=== PATIENT | female | born 1995 | race Caucasian/White ===

== ENCOUNTER 2022-05-09 03:52 | Day surgery (SDC) | payer BC, SELFPAY ==
[2022-05-09] VITALS (11 sets, daily range): BP systolic 104–139; BP diastolic 54–93; PULSE 58–105; RESP 12–18; TEMP 36.3–36.4; O2SAT 99–100
--- NOTE | ~2022-05-09 | CT_ITS ---
EXAMINATION: CT abdomen pelvis w con DATE: 05/09/2022 05:46 INDICATION: Mid and low abdominal pain. Nausea, vomiting, and diarrhea. TECHNIQUE: Computed tomography (CT) of the abdomen and pelvis was performed with 100 mL Omnipaque 350 intravenous contrast. Automated exposure control and iterative reconstruction technique were employe d. The dose-length product was 194.22 mGy-cm. COMPARISON: None. FINDINGS: The visualized portions of the lung bases are clear without pneumonia or pleural effusion. The heart size is normal. No pericardial effusion. The liver, gallbladder, spleen, pancreas, adrenal glands, and kidneys are normal. There are appendicoliths in the appendix, which is dilated to 11 mm a nd contains fluid and gas. There are no pathologically enlarged lymph nodes. There is physiologic flu id in the pelvis. There is thoracolumbar levocurvature. There is mild chronic wedging of T11 and T12 vertebral bodies, likely physiologic. IMPRESSION: 1. Acute appendicitis. Reviewed, dictated and finalized at location A. IMPRESSION: 1. Acute appendicitis.
--- NOTE | 2022-05-09 04:09 | ED.ABDPAIN ---
HPI - Abdominal Pain General Chief Complaint: Abdominal Pain Stated Complaint: abd pain/n/v Time Seen by Provider: 05/09/22 03:58 Source: patient Mode of arrival: ambulatory Limitations: no limitations History of Present Illness HPI narrative: This is a 26 year old female who presents for evaluation nausea, vomiting and diarrhea. Patient developed diffuse abdominal pain with nausea, vomiting and diarrhea at midnight. Her pain has been constant. Her mother and father are at bedside and they report patient has sensitive stomach. Patient had BBQ chicken pizza with beer cider. Patient denies any sick contacts or anyone with similar symptoms. Related Data Allergies Allergy/AdvReac Type Severity Reaction Status Date / Time No Known Allergies Allergy Verified 05/09/22 04:30 Review of Systems Review of Systems: All systems reviewed & are unremarkable except as noted in HPI and below Constitutional: Constitutional: Reports chills and Reports fatigue Cardiovascular: Cardiovascular: Denies chest pain Respiratory: Respiratory: Denies chest congestion Gastrointestinal: Gastrointestinal: Reports abdominal pain, Reports diarrhea, Reports nausea and Reports vomiting PMFSH Past Medical History Medical History (Updated 05/09/22 @ 07:13 by Lucinda Bajwa MD) Patient denies medical problems Surgical History Surgical History (Updated 05/09/22 @ 04:12 by Lucinda Bajwa MD) No pertinent past surgical history Social History Social History (Updated 05/09/22 @ 04:12 by Lucinda Bajwa MD) Alcohol intake: current Exam Const: General: no acute distress and alert Orientation/consciousness: patient oriented x3 Eyes: EOM: EOMs intact bilaterally Resp: Effort & Inspection: normal respiratory effort Auscultation: clear to auscultation bilaterally Cardio: Rate: regular rate Rhythm: regular rhythm Heart sounds: no murmurs GI: GI Palp: Yes Soft to palpation, Yes Tenderness to palpation present (GI) (LLQ, RLQ, suprapubic), No Guarding due to palpation present (GI) and No Rigid due to palpation Auscultation: normal bowel sounds Back/Spine/Pelvis: Back: no CVA tenderness Skin: General skin exam: normal color Rashes: no rashes Wounds: no wounds Neuro: General: patient oriented x3, moves all extremities and CN's II-XI intact bilaterally Extrem: General: normal to inspection Psych: Mental Status: mental status grossly normal Affect: normal affect Attitude: cooperative Course Reevaluation(s) Reevaluation #1: Patient is awaiting CT abdomen/pelvis. Care turned over to Dr. Zheng Date: 05/09/22 Time: 07:12 Vital Signs Vital signs: Vital Signs Temperature 97.3 F L 05/09/22 03:57 Pulse Rate 105 H 05/09/22 03:57 Respiratory Rate 18 05/09/22 03:57 Blood Pressure 139/85 05/09/22 03:57 Pulse Oximetry 100 05/09/22 03:57 Oxygen Delivery Room Air 05/09/22 03:57 Temperature 97.3 F L 05/09/22 03:57 Pulse Rate 105 H 05/09/22 04:35 Respiratory Rate 18 05/09/22 03:57 Blood Pressure 134/93 H 05/09/22 04:35 Pulse Oximetry 100 05/09/22 03:57 Oxygen Delivery Room Air 05/09/22 03:57 MDM - Abdominal Pain Lab Data Result diagrams: 05/09/22 04:29 05/09/22 04:29 Labs: Lab Results 05/09/22 05/09/22 05/09/22 Range/Units 04:29 04:29 04:29 WBC 20.8 H (4.5-10.0) K/mm3 RBC 4.14 L (4.2-5.4) M/mm3 Hgb 13.4 (12.0-15.0) g/dL Hct 40.0 (37.0-47.0) % MCV 96.6 (80-100) fl MCH 32.4 (26-34) pg MCHC 33.5 (32-36) g/dl RDW 13.8 (11.5-14.5) % Plt Count 296 (150-375) k/mm3 MPV 10.0 (7.4-10.4) fl Immature Gran % (Auto) 0.4 (0-0.5) % Neut % (Auto) 87.5 H (45.5-73.1) % Lymph % (Auto) 5.2 L (18.3-44.2) % [place] % (Auto) 6.2 (2.6-8.5) % Eos % (Auto) 0.1 (0-4.4) % Baso % (Auto) 0.6 (0.2-1.2) % Lymph # (Auto) 1.08 (0.9-3.2) K/mm3 [place] # (Auto) 1.3 H (0.1-0.6) K/mm3 E
[2022-05-09] MEDS: LACTATED RINGERS 1,000 ML 999 ML IV CONT ×2 (04:30→05:30)
[2022-05-09] MEDS: ONDANSETRON INJ 4 MG/2 ML VIAL IV PUSH ×2 (04:31→06:13)
[2022-05-09 04:48] LABS: Basophils Absolute Auto 0.1 K/mm3 (0.0-0.1); Basophils Percent Auto 0.6 % (0.2-1.2); Eosinophils Percent Auto 0.1 % (0-4.4); Hemoglobin 13.4 g/dL (12.0-15.0); Immature Granulocyte Absolute 0.08 K/mm3 (0.00-0.031); Immature Granulocyte Percent A 0.4 % (0-0.5); Lymphocytes Absolute Auto 1.08 K/mm3 (0.9-3.2); Lymphocytes Percent Auto 5.2 % (18.3-44.2); Mean Corpuscular HGB Conc 33.5 g/dl (32-36); Mean Corpuscular Hemoglobin 32.4 pg (26-34); Mean Corpuscular Volume 96.6 fl (80-100); Monocytes Absolute Auto 1.3 K/mm3 (0.1-0.6); Monocytes Percent Auto 6.2 % (2.6-8.5); Neutrophils Absolute Auto 18.2 K/mm3 (1.3-6.7); Neutrophils Percent Auto 87.5 % (45.5-73.1); Platelet Count Result 296 k/mm3 (150-375); Red Blood Count 4.14 M/mm3 (4.2-5.4); Red Cell Distribution Width 13.8 % (11.5-14.5); White Blood Count 20.8 K/mm3 (4.5-10.0)
[2022-05-09 04:50] LABS: Appearance Urine Clear (Clear); Bilirubin Urine Negative (Negative); Blood Urine 1+ (Negative); Color Urine Yellow (Yellow); Glucose Urine UA Negative (Negative); Ketones Urine Negative (Negative); Leukocyte Esterase Ur Negative LEU/UL (Negative); Nitrate Urine Negative (Negative); Protein Urine Negative (Negative); Urobilinogen Urine 0.2 mg/dL (<2.0); pH Urine 8.5 (5.0-9.0)
[2022-05-09 04:57] LABS: Add Urine Microscopic? YES; Bacteria Urine Trace /hpf; Mucus Urine Rare /lpf; Squamous Epithelial Cell Urine Rare /hpf (Few); WBC Urine 0-3 /hpf
[2022-05-09 05:00] LABS: Alanine Aminotransferase 27 U/L (6-35); Albumin Level 4.5 g/dL (3.5-5.1); Alkaline Phosphatase 66 U/L (38-126); Anion Gap 11 mmol/L (8-16); Aspartate Amino Transferase 42 U/L (14-36); Bilirubin,Total 0.6 mg/dL (0.2-1.3); Blood Urea Nitrogen 14 mg/dL (7-17); Calcium 9.2 mg/dL (8.4-10.2); Carbon Dioxide 25 mmol/L (22-30); Chloride 101 mmol/L (98-107); Estimated CRCL calculation 88 ml/min; Estimated Glomerular Filt Rate > 60; Glucose 120 mg/dL (65-110); Lipase 82 U/L (23-300); Sodium 137 mmol/L (137-145)
[2022-05-09 05:21] LABS: SARS-CoV-2 RNA PCR Negative
--- NOTE | 2022-05-09 05:32 | PC.NURSE ---
Patient taken to CT via stretcher.
[2022-05-09] MEDS: KETOROLAC 15 MG/ML VIAL (*BKC) IV PUSH (06:13)
--- NOTE | 2022-05-09 08:56 | WPDHPUPDATE1 ---
History and Physical Update Update Date/Time: 05/09/22 08:56 History and Physical has been reviewed, including an updated exam of the patient. There are NO changes in the patient's condition. Risks, benefits, and alternatives have been discussed and questions answered. Patient agrees to proceed with procedure.
--- NOTE | 2022-05-09 08:58 | PM.SD2 ---
Same Day Admit/Disch: [facility] History of Present Illness Chief complaint: Appendicitis Narrative: Marly Pinedo is a 26 year old female developed diffuse abdominal pain with nausea and some loose stools about midnight last night. Her pain was persistent and she came to the emergency room early this morning. Exam there showed her to be very tender throughout the lower abdomen. Her white blood cell count was elevated to 20,800. She had some tachycardia but no fever. CT scan of the abdomen pelvis shows acute appendicitis with the appendix being 11 mm in diameter and appendicoliths present. She is seen now and plans are to proceed with laparoscopic appendectomy this morning on an urgent basis. She is otherwise healthy. [facility] [place] Past Medical History Medical History (Updated 05/09/22 @ 09:24 by Sajan Castañeda MD) Appendicitis Patient denies medical problems Surgical History Surgical History (Updated 05/09/22 @ 09:24 by Sajan Castañeda MD) History of ear surgery S/P ACL repair Social History Social History Alcohol intake: current Same Day Admit/Disch: Med Pre-admit Medications Home Medications Medication Instructions Recorded Confirmed Type ketorolac 10 mg tablet 10 mg PO Q6H 4 days #16 tabs 05/09/22 Rx oxycodone-acetaminophen 5 mg-325 0.5 - 1 tablet PO Q6H PRN pain #10 05/09/22 Rx mg tablet tabs Exam Const: General: no acute distress, alert, awake and uncomfortable HENMT: Head: normocephalic and atraumatic Mouth: Yes Normal oral and palatal mucosa present Eyes: Conjunctivae: conjunctivae normal Pupils: Equal, round and reactive pupils present EOM: EOMs intact bilaterally Neck: Neck: normal visual inspection, no lymphadenopathy and nontender Resp: Effort & Inspection: normal respiratory effort Auscultation: clear to auscultation bilaterally Cardio: Rate: regular rate Rhythm: regular rhythm Heart sounds: no gallops, no murmurs and no rubs GI: Inspection: non-distended GI Palp: Yes Soft to palpation, Yes Tenderness to palpation present (GI) (Both lower quadrants, more on the right), Yes Guarding due to palpation present (GI) (Right lower quadrant), No Hepatomegaly present, No Splenomegaly present and Yes Palpable mass present (Fullness right lower quadrant) Skin: Lesions: no lesions Rashes: no rashes Neuro: General: no focal motor deficits and CN's II-XI intact bilaterally Cranial nerves: Yes Equal, round and reactive pupils present, Yes Bilaterally intact EOM present, Yes facial symmetry and Yes Midline tongue present Speech: normal speech Motor exam (neuro): 5/5 motor strength present throughout and Motor abnormalities not present Extrem: General: no clubbing, cyanosis or edema and edema Psych: Affect: normal affect Thought process: Normal thought process present Insight: Good insight present (Psych) DS: Data Data Completed and Pending Labs on day of discharge: Labs from last 24 hours 05/09/22 05/09/22 05/09/22 04:32 04:29 04:29 WBC 20.8 H RBC 4.14 L Hgb 13.4 Hct 40.0 MCV 96.6 MCH 32.4 MCHC 33.5 RDW 13.8 Plt Count 296 MPV 10.0 Immature Gran % (Auto) 0.4 Neut % (Auto) 87.5 H Lymph % (Auto) 5.2 L [place] % (Auto) 6.2 Eos % (Auto) 0.1 Baso % (Auto) 0.6 Lymph # (Auto) 1.08 [place] # (Auto) 1.3 H Eos # (Auto) 0.0 Baso # (Auto) 0.1 Abs Immat Gran (auto) 0.08 H Absolute Neuts (auto) 18.2 H Absolute Nucleated RBC 0.0 Nucleated RBC % 0.0 Sodium 137 Potassium 4.0 Chloride 101 Carbon Dioxide 25 Anion Gap 11 BUN 14 Creatinine 0.70 Estim Creat Clear Calc 88 Estimated GFR > 60 Glucose 120 H Calcium 9.2 Total Bilirubin 0.6 AST 42 H ALT 27 Alkaline Phosphatase 66 Total Protein 8.0 Albumin 4.5 Lipase 82 Urine Color Urine Appearance Urine pH Ur Specific [place] Urine Protein Urine Gluc
--- NOTE | 2022-05-09 09:24 | WPDANESEPPF ---
Anes - Initial Pre Proc Eval Procedure: Operation Date: 05/09/22 10:00 Proposed Procedures p Laparoscopic Appendectomy - Filipe Granados MD Date/Time: 05/09/22 09:24 Surgeon: Filipe Granados MD Pre Op Diagnosis: Appendicitis Patient Data Age: 26 Gender: F Height: 1.6 m Weight: 53.6 kg Last Vital Signs Temp 36.3 C L 05/09/22 03:57 Pulse 105 H 05/09/22 04:35 Resp 18 05/09/22 03:57 BP 134/93 H 05/09/22 04:35 Pulse Ox 100 05/09/22 03:57 O2 Del Method Room Air 05/09/22 03:57 Allergies Allergy/AdvReac Type Severity Reaction Status Date / Time No Known Allergies Allergy Verified 05/09/22 04:30 Laboratory Tests 05/09/22 05/09/22 05/09/22 04:29 04:29 04:29 WBC 20.8 K/mm3 H K/mm3 (4.5-10.0) RBC 4.14 M/mm3 L M/mm3 (4.2-5.4) Hgb 13.4 g/dL g/dL (12.0-15.0) Hct 40.0 % % (37.0-47.0) MCV 96.6 fl fl (80-100) MCH 32.4 pg pg (26-34) MCHC 33.5 g/dl g/dl (32-36) RDW 13.8 % % (11.5-14.5) Plt Count 296 k/mm3 k/mm3 (150-375) MPV 10.0 fl fl (7.4-10.4) Immature Gran % (Auto) 0.4 % % (0-0.5) Neut % (Auto) 87.5 % H % (45.5-73.1) Lymph % (Auto) 5.2 % L % (18.3-44.2) [place] % (Auto) 6.2 % % (2.6-8.5) Eos % (Auto) 0.1 % % (0-4.4) Baso % (Auto) 0.6 % % (0.2-1.2) Lymph # (Auto) 1.08 K/mm3 K/mm3 (0.9-3.2) [place] # (Auto) 1.3 K/mm3 H K/mm3 (0.1-0.6) Eos # (Auto) 0.0 K/mm3 K/mm3 (0-0.3) Baso # (Auto) 0.1 K/mm3 K/mm3 (0.0-0.1) Abs Immat Gran (auto) 0.08 K/mm3 H K/mm3 (0.00-0.031) Absolute Neuts (auto) 18.2 K/mm3 H K/mm3 (1.3-6.7) Absolute Nucleated RBC 0.0 K/mm3 K/mm3 (0.0-0.012) Nucleated RBC % 0.0 % % (0.0-0.2) Sodium 137 mmol/L mmol/L (137-145) Potassium 4.0 mmol/L mmol/L (3.4-5.0) Chloride 101 mmol/L mmol/L (98-107) Carbon Dioxide 25 mmol/L mmol/L (22-30) Anion Gap 11 mmol/L mmol/L (8-16) BUN 14 mg/dL mg/dL (7-17) Creatinine 0.70 mg/dL mg/dL (0.7-1.0) Estim Creat Clear Calc 88 ml/min ml/min Estimated GFR > 60 (59 - ) Glucose 120 mg/dL H mg/dL (65-110) Calcium 9.2 mg/dL mg/dL (8.4-10.2) Total Bilirubin 0.6 mg/dL mg/dL (0.2-1.3) AST 42 U/L H U/L (14-36) ALT 27 U/L U/L (6-35) Alkaline Phosphatase 66 U/L U/L (38-126) Total Protein 8.0 g/dL g/dL (6.3-8.2) Albumin 4.5 g/dL g/dL (3.5-5.1) Lipase 82 U/L U/L (23-300) Urine Color Yellow (Yellow) Urine Appearance Clear (Clear) Urine pH 8.5 (5.0-9.0) Ur Specific [place] 1.020 (1.001-1.035) Urine Protein Negative mg/dL mg/dL (Negative) Urine Glucose (UA) Negative mg/dL mg/dL (Negative) Urine Ketones Negative mg/dL mg/dL (Negative) Ur Blood (Man) 1+ H (Negative) Urine Nitrate Negative (Negative) Urine Bilirubin Negative (Negative) Urine Urobilinogen 0.2 mg/dL mg/dL (<2.0) Leukocyte Esterase Rfl Negative DIMITRIS/UL DIMITRIS/UL (Negative) Urine RBC 11-20 /hpf H /hpf (0-2) Urine WBC 0-3 /hpf /hpf Ur Squamous Epith Cells Rare /hpf /hpf (Few) Urine Bacteria Trace /hpf /hpf Urine Mucus Rare /lpf /lpf SARS-CoV-2 RNA (RT-PCR) 05/09/22 04:32 WBC RBC Hgb Hct MCV MCH MCHC RDW Plt Count MPV Immature Gran % (Auto) Neut % (Auto) Lymph % (Auto) [place] % (Auto) Eos % (Auto) Baso % (Auto) Lymph # (Auto) [place] # (Auto) Eos # (Auto) Baso # (Auto) Abs Immat Gran
[2022-05-09] MEDS: LACTATED RINGERS 1,000 ML 30 ML IV CONT ×2 (10:00→10:24)
--- NOTE | 2022-05-09 10:17 | P.OP_ITS ---
Procedure Note - Detailed Date of Procedure 05/09/22 Pre-op Diagnosis Appendicitis Post-op Diagnosis Same Procedure Performed Laparoscopic appendectomy Surgeon Filipe Granados MD Aerophysics Engineer Vania Baig [employer] S[employer] Anesthesia General and Local (0.25% bupivacaine with epinephrine) Indications Patient developed lower abdominal pain starting midnight last night. She also had some vomiting. The pain was persistent and she came to the emergency room. She had tenderness in both lower quadrants [place] [address] scan showed acute appendicitis with appendicoliths. She is taken to surgery now for laparoscopic appendectomy. Findings Acute appendicitis with no evidence of ruptured appendix. The appendix did have a greenish tint but did not have any gangrene or infarction. Description of Procedure Patient was taken to surgery and induced into general anesthesia. The abdomen is prepped and draped. Trocars were placed in usual fashion using applied Medical optical trocars and local anesthetic. Patient was placed in Trendelenburg with right side elevated. The appendix was found fairly easily. It was obviously acutely inflamed. There was an evident appendicoliths in the proximal 3rd of the appendix. It was quite distended beyond this. The appendix was elevated anteriorly and dissection was carried out in the mesoappendix. The appendiceal artery was found and was thoroughly cauterized and divided. The rest of the mesoappendix was dissected back to the appendix. The base of the appendix was skeletonized. A Vicryl endoloop was then used to ligate the appendix at its base. The appendix was amputated just above the ligature and the mucosa of the appendiceal stump was cauterized. The appendix was retrieved in an Endo-Catch bag through the 10 11 left lower quadrant trocar site. The trocar was then replaced and we reviewed the areas of dissection as well as the appendiceal stump. We also looked in the pelvis and found no fluid or abnormali ties there. All looked quite good. We evacuated CO2 and removed the trocar sleeves. Skin wounds were closed with subcuticular 4-0 Monocryl skin suture. The wounds were dressed with Exofin surgical adhesive. Patient was awakened and taken to recovery in good condition. Sponge and needle counts were correct x2. Estimated Blood Loss -5 Drains No Packing No Pathology Yes (Appendix) Complications No immediate complications Condition Stable Disposition PACU [facility] Billing Surgery - Charge Forward: Surgery Billing (Laparoscopic appendectomy)
--- NOTE | 2022-05-09 10:49 | SUR.PHASEI ---
1048- oral airway removed
[2022-05-09] MEDS: oxyCODONE HCL (*CRX) 5 MG TAB IR PO (11:45)
== END 2022-05-09 12:20 | disposition home or self-care (01) ==
LOC: ANHED 07:24 → ANHSURGERY 08:08
PROVIDERS: General Practice; Emergency Provider Emergency Medicine; Visit Provider Surgery
PROC: 0DTJ4ZZ Resection of Appendix, Percutaneous Endoscopic Approach (ICD-10-PCS; CPT 44970; principal; 2022-05-09 10:00)
DX: K35.80 Unspecified acute appendicitis (principal); Z20.822 Contact with and (suspected) exposure to COVID-19
CPT/HCPCS: 44970; 36415; 74177; 80053; 81001; 81025; 83690; 85025; 88304; 96361; 96365; 96375; 96376; 99285; A9270; C9803; J0131; J0330; J1100; J1170; J1885; J2250; J2405; J2543; J2704; J2710; J3010; J7030; J7120; Q9967; U0003; U0005